=== PATIENT | male | born 1955 | race Caucasian/White ===

== ENCOUNTER → 2017-02-12 | Outpatient (CLI) | payer OTHER | END | disposition home or self-care (01) | LOC: CDC 09:26 | DX: Z01.810 Encounter for preprocedural cardiovascular examination (principal); I45.4 Nonspecific intraventricular block; M25.774 Osteophyte, right foot; T84.498D Other mechanical complication of other internal orthopedic devices, implants and grafts, subsequent encounter | CPT/HCPCS: 93000 ==